=== PATIENT | female | born 1990 | race African-American/Black ===

== ENCOUNTER 2024-05-19 21:26 | Emergency (ER) | payer SELFPAY ==
[~2024-05-19] VITALS: Ht 170.2 cm; Wt 150.0 kg
[2024-05-19 21:39] VITALS: BP 152/73; PULSE 58; RESP 20; TEMP 98.3; O2SAT 100
== END 2024-05-20 00:29 | disposition home or self-care (01) ==
LOC: ER 21:26
DX: I10 Essential (primary) hypertension (principal)
CPT/HCPCS: 99281